=== PATIENT | male | born 1995 | race Caucasian/White ===

== ENCOUNTER 2017-10-25 21:40 | Emergency (ER) | payer BC ==
[~2017-10-25] VITALS: Ht 182.9 cm; Wt 81.8 kg
[~2017-10-25 21:40] MED LIST: NASONEX SPRAY17 GM NS; SINGULAIR 110 MG/TAB PO; ZYRTEC 10MG10 MG PO
[2017-10-25 21:47] VITALS: BP 120/74; TEMP 99.2
[2017-10-25 22:36] LABS: BASO % 0.2 % (0.0-2.0); EOS % 0.2 % (0-4.0); GRAN # 16.5 (1.4-6.5); GRAN % 89.8 % (42.2-75.2); HEMATOCRIT 47.9 % (42.0-52.0); HEMOGLOBIN 16.3 g/dl (13.5-18.0); LYMPH # 0.6 (1.2-3.4); LYMPH % 3.2 % (20.0-51.0); MEAN CELL VOLUME 87 fl (80.0-100.0); MEAN CORPUSCULAR HEMOGLOBIN 30 pg (27.0-31.0); MEAN CORPUSCULAR HGB CONC 34 g/dl (33.0-37.0); MEAN PLATELET VOLUME 9.8 fl (7.4-10.4); MONO # 1.1 (0.1-0.6); MONO % 6.2 % (1.7-9.3); PLATELET COUNT 228 K/mm3 (130-400); RED BLOOD COUNT 5.51 M/mm3 (4.20-5.60); REDCELL DISTRIBUTION WIDTH-CV 12.1 % (11.5-14.5)
[2017-10-25 22:47] LABS: ALBUMIN 5.2 gm/dL (3.5-5.0); BILIRUBIN,TOTAL 1.3 mg/dL (0.0-1.0); CALCIUM 9.5 mg/dL (8.4-10.2); CREATININE, serum 0.88 mg/dL (0.66-1.25); POTASSIUM 3.8 mmol/L (3.4-5.0); TOTAL PROTEIN 8.1 gm/dL (6.4-8.2)
[2017-10-25 23:58] LABS: COLLECTION METHOD CLEAN CATCH
[2017-10-26 00:03] VITALS: PULSE 97
[2017-10-26 00:04] LABS: MUCOUS Present /lpf; PH 5 (5-8); SQUAMOUS EPITHELIAL 0-2 /hpf; URINE APPEARANCE Clear; URINE BACTERIA None Seen /hpf; URINE BILIRUBIN Negative (NEGATIVE); URINE BLOOD Negative (NEGATIVE); URINE COLOR Yellow; URINE GLUCOSE Negative (NEGATIVE); URINE KETONE 1+ (NEGATIVE); URINE LEUKOCYTE ESTERASE Negative (NEGATIVE); URINE NITRATE Negative (NEGATIVE); URINE PROTEIN(semi-quant) Negative (NEGATIVE); URINE RBC 0-2 /hpf; URINE UROBILINOGEN Negative (NEGATIVE)
== END 2017-10-26 00:10 | disposition home or self-care (01) ==
LOC: COL.ER 21:40
PROVIDERS: Emergency Medicine
DX: K52.9 Noninfective gastroenteritis and colitis, unspecified (principal)
CPT/HCPCS: J2765; J7030; Q9967

== ENCOUNTER 2017-11-22 17:50 | Emergency (ER) | payer BC ==
[~2017-11-22] VITALS: Ht 182.9 cm; Wt 84.1 kg
[2017-11-22 17:58] VITALS: BP 119/73; TEMP 97.9
[2017-11-22 19:15] VITALS: PULSE 85
== END 2017-11-22 19:15 | disposition home or self-care (01) ==
LOC: COL.ER 17:50
DX: S63.636A Sprain of interphalangeal joint of right little finger, initial encounter (principal); Z79.51 Long term (current) use of inhaled steroids; X58.XXXA Exposure to other specified factors, initial encounter